=== PATIENT | female | born 1975 | race Hispanic/Latino ===

== ENCOUNTER 2016-07-26 23:53 | Emergency (ER) | payer SELFPAY ==
[~2016-07-26] VITALS: Ht 165.1 cm; Wt 125.0 kg
[~2016-07-26 23:53] MED LIST: OMEP20TA86 PO
[2016-07-26 23:55] VITALS: BP 183/85; PULSE 70; RESP 20; O2SAT 96
--- NOTE | 2016-07-27 00:17 | ED.REPORT ---
HPI-Back Pain 40 and Over Date of Service Jul 27, 2016 ED Provider: Dr. Del Álvarez Patient is a 41-year-old female who presents to the ED reporting back pain that radiates down her legs for the past 3 days. Today the pain reached a new level of severity and she experienced a "ball of pain" in her right calf and right hip. She is currently taking ibuprofen to help manage pain but it has not been effective in controlling her symptoms. She last saw her primary care physician for similar symptoms in February but they have increased in severity since. She denies any injury or accident that could have caused the pain. Pt denies dysuria. Nursing Notes Stated Complaint: R SIDED PAIN Chief Complaint: Back Pain or Injury Nursing Notes Reviewed: Yes ([id number], MOMENTFACE SRO not reconciled) Allergies: Coded Allergies: No Known Allergies (Verified , 10/29/12) Scheduled Omeprazole-Expunged Drug, Do Not Renew! (Omeprazole-Expunged Drug, Do Not Renew! ) 20 Mg Tablet.dr 20 MG PO DAILY Scheduled PRN Hydrocodone-Acetaminophen 5-325 mg (Hydrocodone-Acetaminophen 5-325 mg) 1 Each Tablet 1-2 TABLET PO TID PRN PRN For Pain In [place] Please General Time Seen by MD: 00:15 Chief Complaint Back pain Hx Obtained From: Patient Arrived By: Walk-in Sudden in Onset?: Yes Onset Occurred: 3 days ago Symptom Duration: Since onset Radiation: : Right leg above knee: Right leg below knee Severity: Current: Moderate Severity: Maximum: Moderate Recent Healthcare: Recent doctor visit Similar Sx Previous: Yes Past Medical History Past Medical History denies Past Surgical History Reports: , Cholecystectomy Smoking History Never Smoker Social History Drug Use: Denies drug use Ambulatory Status Independent Review of Systems Female: Denies: Dysuria Musculoskeletal: Reports: Back pain (radiating into lower extremities ) Complete sys rev & neg: except as marked. Physical Exam Initial Vital Signs Vital Signs (First) Date Time Temp Pulse Resp B/P Pulse Ox O2 Delivery O2 Flow Rate FiO2 07/26/16 23:55 36.3 70 20 183/85 96 07/27/16 01:24 Room Air Initial VS: Reviewed, Vital signs abnormal (HTN) General/Constitutional: Awake, Alert, Well appearing, Well developed, Cooperative mild discomfort Respiratory / Chest: Atraumatic, Breath sounds NL, Breath sounds = bilat, No respiratory distress, No rales, No rhonchi Cardiovascular: Heart rate NL, Regular rhythm, Heart sounds NL, No gallop, No murmurs, No rubs Abdomen: Atraumatic, Soft, Non-tender, McBurney's non-tender, No guarding, No rebound Back: Atraumatic, Inspection NL Neurologic: Oriented X3, Speech NL, No motor deficits, No sensory deficits Lower Extremity / Pelvis / MS: No swelling negative straight raise intact strength with plantar and dorsal flexion, somewhat decreased on right side no signs of cellulitis Re-Eval/Medical Decision Med Decision/Clinical Course This is a pleasant 41-year-old obese female presents complaining of persistent sciatic symptoms since February. She has been seen by her PCP was placed on ibuprofen, and has been taking it-but reports the pain has persisted, and indeed a recent basis and getting worse. She denies new trauma. She reports some numbness in the right leg, but not dami weakness. She denies bowel or bladder dysfunction. She denies fevers chills, denies history of IVDA, has no risk factors for epidural abscess. She has not sought imaging secondary to her lack of insurance. She reports the pain is intense enough ibuprofen has not helped, but she has come to the emergency department for systems with pain management. Since she appears uncomfortable, but does not have overt focal deficits. The patient does have enough red flags which did imaging ultimately be reasonable, but does not have findings necessitate emergent imaging in the department. She received a dose of IM Dilaudid with improvement. She is being discharged with some hydrocodone. The need for close follow-up with her primary care physician this week for recheck was reviewed. The patient is being discharged hematuria and improved condition The patient was initially hypertensive, but blood pressure did improve. I reviewed her records and she has had prior imaging with no finding suggestive AAA, I am not finding indication for emergent imaging at this time. He is mildly hypertensive at time of discharge, but are not finding indication that acute intervention is required, and again close follow-up with her primary care physician is warranted. Source of Hx: Old records Re-Evaluation/Progress : Time of Eval: 00:10 Patient Status: Condition improved Re-Evaluation/Progress Note: Pt rechecked. Informed pt of diagnosis and plan for treatment. Pt understands and agrees with plan. F/U and RTER warnings given. All questions addressed. Counseled Regarding: Diagnosis, Lab results, Need for follow-up, When/why to return to ED Discharge & Departure Impression: Primary Impression: Sciatica of right side Additional Impression: HTN (hypertension) Hypertension type: unspecified secondary hypertension Hypertension goal: unspecified goal Qualified Code: I15.9 - Secondary hypertension, unspecified Disposition: Home Discharge Condition All VS Reviewed: Yes Condition: Stable Additional Instructions: 1. Continue the ibuprofen 400-800mg three times a day. Take with food. 2. For more severe pain take hydrocodone/APAP 5/325 1-2 tabs up to three times a day. NOTE: This medication does contain a narcotic and causes drowsiness. NO driving for at least 4 hours after taking. Try to use sparingly. 3. Call [facility] on Friday to schedule an appointment this week. Given the duration of your symptoms, imaging may be considered and you may benefit from physical therapy. 4. Return again if new or worsening symptoms, or if changes in your bowel or bladder occur. 1. continuar el ibuprofeno 400-800mg gustavo veces al da. Darrion con alimentos. 2. para ms grave dolor tome hydrocodone/APAP 5/325 1-2 fichas hasta gustavo veces al da. Nota: Arleth medicamento contiene un narctico y causa somnolencia. NO se puede conducir bernadine al menos 4 horas despus de darrion. Trate de usar con moderacin. 3. llame [facility] el para hacer angel karlie esta semana. Luis la duracin de los sntomas, puede considerarse la proyeccin de imagen y puede beneficiarse de terapia fsica. 4. volver otra vez si nueva o empeoramiento de los sntomas, o si se producen cambios en el intestino o la vejiga. Referrals: Veronica Colón MD (PCP) Scribe Attestation Portion of this note were transcribed by Chandrakant Perez. I, Dr. Álvarez, personally performed the history, physical exam, and medical decision-making: I reviewed and confirmed the accuracy for the information in the transcribed note. Signed by: neetu Allison, 07/26/16 1300 copies to: Veronica Colón MD, Matthew F MD Jul 27, 2016 00:17 CHANDRAKANT PEREZ Jul 27, 2016 00:39
[2016-07-27] MEDS ORDERED: HYDROmorphone 1 mg/mL Inj IM ONE (00:25)
[2016-07-27] MEDS ORDERED: Ondansetron 8 mg ODT Tablet PO ONE (00:25)
[2016-07-27] MEDS ORDERED: _HYDROcodone/APAP 5-325 mg Tablet PO PRN (00:25)
[2016-07-27] MEDS ORDERED: HYDR-4003 PO (00:42)
[2016-07-27 01:24] VITALS: BP 175/98; PULSE 78; RESP 18; O2SAT 97
== END 2016-07-27 01:24 | disposition home or self-care (01) ==
LOC: SED 23:53
DX: M54.31 Sciatica, right side (principal); I10 Essential (primary) hypertension; Z90.49 Acquired absence of other specified parts of digestive tract
CPT/HCPCS: 96372; 99283; J1170